=== PATIENT | female | born 1980 | race Caucasian/White ===

== ENCOUNTER 2016-07-31 10:20 | Emergency (ER) | payer OTHER ==
[~2016-07-31] VITALS: Ht 157.5 cm; Wt 73.0 kg
[~2016-07-31 10:20] MED LIST: ALBUAER2 INH; ONDA4TAB7 SL
[2016-07-31 10:26] VITALS: TEMP 36.8; Ht 157.5 cm; Wt 73.0 kg
[2016-07-31] MEDS ORDERED: HYDROmorphone INJ 0.5 MG/0.5 ML SYR IV STA (10:34)
[2016-07-31] MEDS ORDERED: ONDANSETRON INJ 2 MG/ML 2 ML VIAL IV STA (10:34)
[2016-07-31] MEDS ORDERED: IBUP-1428 PO (10:50)
[2016-07-31] MEDS ORDERED: OXYC-609 PO (10:50)
[2016-07-31 11:09] LABS: BASO % 0.5 %; BASO ABS # 0.03 K/uL (0-0.2); COMPLETE YES; EOS % 2.8 %; HEMATOCRIT 40.8 % (37-47); IG% 0.3 %; LYMPH % 25.5 %; LYMPH ABS # 1.55 K/uL (1.2-3.4); MEAN CELL VOLUME 91.1 fL (80-100); MEAN CORPUSCULAR HEMOGLOBIN 31.5 pg (25-34); MEAN CORPUSCULAR HGB CONC 34.6 g/dl (32-36); MEAN PLATELET VOLUME 9.7 fL (7.4-10.4); MONO % 10.5 %; NEUT % 60.4 %; PLATELET COUNT 264 K/uL (130-400); RED BLOOD COUNT 4.48 M/uL (4.2-5.4); WHITE BLOOD COUNT 6.09 K/uL (4.8-10.8)
[2016-07-31 11:25] LABS: ALT/SGPT 27 U/L (12-78); AST/SGOT 13 U/L (15-37); BLOOD UREA NITROGEN 6 mg/dl (7-18); BUN/CREATININE RATIO 5.8 (10-20); CALCIUM 8.9 mg/dl (8.5-10.1); CARBON DIOXIDE 29 mmol/L (21-32); CHLORIDE 109 mmol/L (98-107); GLUCOSE 84 mg/dl (70-99); POTASSIUM 3.7 mmol/L (3.5-5.1); SODIUM 144 mmol/L (136-145)
[2016-07-31 11:28] LABS: ALKALINE PHOSPHATASE 62 U/L (45-117)
[2016-07-31 11:47] LABS: URINE APPEARANCE CLEAR (CLEAR); URINE BILIRUBIN NEG (NEG); URINE COLOR YELLOW; URINE EPITHELIAL CELL AUTO >30 /lpf (0-5); URINE NITRITE NEG (NEG); URINE PH 6.5 (4.5-7.5); UROBILINOGEN NEG (NEG); ZZUR CULT IF INDIC CLEAN CATCH YES
[2016-07-31 12:05] LABS: MANUAL MICROSCOPIC REQUIRED? NO; REVIEW REQ? NO
[2016-07-31] MEDS ORDERED: CEPHALEXIN MONOHYDRATE 250 MG CAP PO ONE (14:00)
[2016-07-31] MEDS ORDERED: CEPH500C PO (14:01)
[2016-07-31 14:16] VITALS: BP 135/88; PULSE 66; O2SAT 99
--- NOTE | 2016-07-31 14:59 | Progress Note ---
Progress Note Date of Service Jul 31, 2016. Progress Note Dr. Flores asked me to evaluate patient given she had surgery by Dr. Winkler on Wednesday07/28/2016. Patient came into emergency department complaining of umbilical pain , redness, and burning sensation. Pain began last evening, with some redness, no drainage, fever, chills, nausea, vomiting, or generalized abdominal pain. She states her daughter bumped into her yesterday on accident and now has some bruising in the area. Last bowel movement was yesterday and tolerating regular diet. General: A & O x 3 , NAD HEENT: Normocephalic/atraumatic Abdomen: Soft, Tender at umbilicus with erythema and ecchymosis, no incisional drainage, incisions clean/dry/intact with steri strips present. Normal bowel sounds. No rigidity, guarding, rebound, or peritonitis. No induration or fluctuance at the umbilicus to suggest abscess. No edema. No palpable mass or fluid collection. Skin: warm and dry, warm to touch at umbilicus Labs: WBC normal at 6.09 , H&H normal at 14.1/40.8. LFTS within normal limits. Total bilirubin 0.3 and direct bilirubin 0.1 Patient stable with no leukocytosis, LFTS within normal limits and examination showing ecchymosis, tenderness and slight erythema at umbilicus. Recommend course of Keflex 500 mg BID and patient will follow-up with me in office on . Advised patient to report back to emergency room with fever, chills, nausea, vomiting, increasing abdominal pain, redness, or purulent drainage from incision , her and understood. Umu Hernandez PA-C General surgery 07/31/16 2:57 pm
--- NOTE | 2016-07-31 17:36 | EMERGENCY ROOM VISIT NOTE ---
History Report prepared by Pj: Delisa Rehman Under the Supervision of: Dr. Justice Flores D.O. First contact with patient: 10:29 Chief Complaint: REFERRED BY DOCTOR Stated Complaint: LILIYA ON JOSE History of Present Illness The patient is a 35 year old female who presents to the Emergency Room with complaints of persistent abdominal pain starting last night. She had gallbladder surgery 3 days ago. The incision site has been irritated and inflamed. She describes the sensation as her abdomen being on fire around her umbilicus. Her last bowel movement was yesterday and was normal. She denies any dysuria. She is still passing gas. There is no discharge or draining from the site. No urinary urgency or frequency. No vaginal discomfort. Source of History: patient Onset: last night Position: abdomen Quality: burning Timing: other (persistent) Note: Pt denies dysuria, change in bowel movement, discharge or draining for site. Review of Systems See HPI for pertinent positives & negatives. A total of 10 systems reviewed and were otherwise negative. Past Medical & Surgical Medical Problems: (1) Asthma (2) Diabetes Family History Diabetes mellitus FH: cancer FH: gallbladder disease FH: heart disease Hypertension Social History Smoking Status: Never Smoker Alcohol Use: none Marital Status: single Occupation Status: unemployed Current/Historical Medications Scheduled Cephalexin Monohydrate (Keflex), 500 MG PO QID Scheduled PRN Ibuprofen (Motrin), 800 MG PO Q8H PRN for Pain Oxycodone HCl (Oxycodone HCl), 5 MG PO Q6 PRN for Pain Allergies Coded Allergies: BEE STING (Verified Allergy, Mild, 07/31/16) Codeine (Verified Allergy, Unknown, THROAT SWELLS, 07/05/15) Morphine (Verified Adverse Reaction, Severe, cardiac arrest, 07/05/15) Aspirin (Verified Adverse Reaction, Mild, NOSE BLEED, 07/31/16) Physical Exam Vital Signs Date Time Temp Pulse Resp B/P Pulse Ox O2 Delivery O2 Flow Rate FiO2 07/31/16 14:16 66 18 135/88 99 07/31/16 10:26 36.8 90 16 142/88 99 Room Air Physical Exam GENERAL: ambulating without difficulty, alert, well appearing, well nourished, no distress, non-toxic EYE EXAM: normal conjunctiva OROPHARYNX: no exudate, no erythema, lips, buccal mucosa, and tongue normal and mucous membranes are moist NECK: supple, no nuchal rigidity, no adenopathy, non-tender LUNGS: Clear to auscultation. Normal chest wall mechanics HEART: no murmurs, S1 normal and S2 normal ABDOMEN: abdomen soft, non-tender, normo-active bowel sounds, no masses, no rebound or guarding. Multiple incision sites present, all clean, dry and intact except umbilical. Mild erythema and tenderness to palpation. No fluctuance. SKIN: no rashes and no bruising UPPER EXTREMITIES: upper extremities are grossly normal. LOWER EXTREMITIES: No pitting edema. NEURO EXAM: Normal sensorium, cranial nerves II-XII grossly intact, normal speech, no gross weakness of arms, no gross weakness of legs. Medical Decision & Procedures Laboratory Results 07/31/16 10:55 Red Blood Count 4.48, Mean Corpuscular Volume 91.1, Mean Corpuscular Hemoglobin 31.5, Mean Corpuscular Hemoglobin Concent 34.6, Mean Platelet Volume 9.7, Neutrophils (%) (Auto) 60.4, Lymphocytes (%) (Auto) 25.5, Monocytes (%) (Auto) 10.5, Eosinophils (%) (Auto) 2.8, Basophils (%) (Auto) 0.5, Neutrophils # (Auto ) 3.68, Lymphocytes # (Auto) 1.55, Monocytes # (Auto) 0.64, Eosinophils # (Auto ) 0.17, Basophils # (Auto) 0.03 07/31/16 10:55 Test 07/31/16 10:55 07/31/16 11:30 White Blood Count 6.09 K/uL (4.8-10.8) Red Blood Count 4.48 M/uL (4.2-5.4) Hemoglobin 14.1 g/dL (12.0-16.0) Hematocrit 40.8 % (37-47) Mean Corpuscular Volume 91.1 fL (80-100) Mean Corpuscular Hemoglobin 31.5 pg (25-34) Mean Corpuscular Hemoglobin Concent 34.6 g/dl (32-36) Platelet Count 264 K/uL (130-400) Mean Platelet Volume 9.7 fL (7.4-10.4) Neutrophils (%) (Auto) 60.4 % Lymphocytes (%) (Auto) 25.5 % Monocytes (%) (Auto) 10.5 % Eosinophils (%) (Auto) 2.8 % Basophils (%) (Auto) 0.5 % Neutrophils # (Auto) 3.68 K/uL (1.4-6.5) Lymphocytes # (Auto) 1.55 K/uL (1.2-3.4) Monocytes # (Auto) 0.64 K/uL (0.11-0.59) Eosinophils # (Auto) 0.17 K/uL (0-0.5) Basophils # (Auto) 0.03 K/uL (0-0.2) RDW Standard Deviation 41.7 fL (36.4-46.3) RDW Coefficient of Variation 12.4 % (11.5-14.5) Immature Granulocyte % (Auto) 0.3 % Immature Granulocyte # (Auto) 0.02 K/uL (0.00-0.02) Anion Gap 6.0 mmol/L (3-11) Est Creatinine Clear Calc Drug Dose 74.9 ml/min Estimated GFR () 85.7 Estimated GFR (Non- 74.0 BUN/Creatinine Ratio 5.8 (10-20) Calcium Level 8.9 mg/dl (8.5-10.1) Total Bilirubin 0.3 mg/dl (0.2-1) Direct Bilirubin < 0.1 mg/dl (0-0.2) Aspartate Amino Transf (AST/SGOT) 13 U/L (15-37) Alanine Aminotransferase (ALT/SGPT) 27 U/L (12-78) Alkaline Phosphatase 62 U/L (45-117) Total Protein 7.3 gm/dl (6.4-8.2) Albumin 3.9 gm/dl (3.4-5.0) Lipase 170 U/L (73-393) Urine Color YELLOW Urine Appearance CLEAR (CLEAR) Urine pH 6.5 (4.5-7.5) Urine Specific [place] 1.010 (1.000-1.030) Urine Protein NEG (NEG) Urine Glucose (UA) NEG (NEG) Urine Ketones NEG (NEG) Urine Occult Blood NEG (NEG) Urine Nitrite NEG (NEG) Urine Bilirubin NEG (NEG) Urine Urobilinogen NEG (NEG) Urine Leukocyte Esterase NEG (NEG) Urine WBC (Auto) 1-5 /hpf (0-5) Urine RBC (Auto) 0-4 /hpf (0-4) Urine Hyaline Casts (Auto) 5-10 /lpf (0-5) Urine Epithelial Cells (Auto) >30 /lpf (0-5) Urine Bacteria (Auto) 1+ (NEG) Urine Test NEG (NEG) Laboratory results per my review. Medications Administered Medications (Trade) Dose Ordered Sig/Henry Route Start Time Stop Time Status Last Admin Dose Admin Hydromorphone HCl (Dilaudid Inj) 0.5 mg NOW STAT IV 07/31/16 10:34 07/31/16 10:35 DC 07/31/16 11:03 0.5 MG Ondansetron HCl (Zofran Inj) 4 mg NOW STAT IV 07/31/16 10:34 07/31/16 10:35 DC 07/31/16 11:03 4 MG Cephalexin Monohydrate (Keflex Cap) 500 mg NOW ONCE PO 07/31/16 14:00 07/31/16 14:01 DC 07/31/16 14:05 500 MG ED Course ED COURSE: Vital signs were reviewed and showed normal vitals. The patients medical record was reviewed The above diagnostic studies were performed and reviewed. ED treatments and interventions as stated above. 1031: The patient was evaluated in room B9. A complete history and physical examination was performed. 1034: Zofran Inj 4 mg IV, Dilaudid Inj 0.5 mg IV. 1131: I reevaluated the patient. She is resting comfortably. 1239: I discussed the patient's case with Dr. Winkler, [facility]. He requests I call someone from the service. 1323: I discussed the patient's case with Dr. Benson, [facility]. He requests that I call one of his PAs. 1329: I discussed the patient's case with Umu Hernandez PA-C [facility]. She will come evaluate the patient. 1334: I reevaluated the patient. She is resting comfortably. I informed her that General Surgery will be coming down to examine her. 1354: General surgery has evaluated the patient. They recommends Keflex and follow up in the office next week. 1358: Upon reevaluation, the patient is resting comfortably.I discussed my findings with the patient and she understands and agrees with the treatment plan. Based on the patients age, coexisting illnesses, exam and lab findings the decision to treat as an outpatient was made. The patient remained stable while under my care. The patient appeared well at the time of discharge. Medical Decision Differential diagnosis includes etiologies such as cellulitis, abscess, MRSA infection, DVT, necrotizing fasciitis, dermatitis, drug eruption, as well as others were entertained. Patient is a 35-year-old female status post laparoscopic cholecystectomy performed [facility] at [facility]. CBC along with BMP, LFTs, bilirubin and lipase was unremarkable. UA was contaminated. Urine was negative. On exam she does have mild erythema around her umbilicus. I discussed her case and patient was evaluated by general surgery at bedside. They recommended Keflex and following up on . Patient was given a dose of Keflex here, and instructed to follow-up with general surgery. Discussed with Pt concerning signs and symptoms to watch out for. Pt was instructed to follow up with their PCP and discussed with the patient their option to return to the ED at anytime for persistent or worsening symptoms. The appropriate anticipatory guidance and out-patient management, including indications for return to the emergency department, were explained at length to the patient and understood. Consults Time Called: 1222 Consulting Physician: Dr. Winkler, [facility] Returned Call: 1239 I discussed the patient's case with him. He requests I call someone from the service. Additional Consults: Time Called: 1245 Consulted Physician: Dr. Benson, [facility] Returned Call: 1323 Additional Comments: I discussed the patient's case with him. He requests that I call one of his PAs. Time Called: 1325 Consulted Physician: Umu Hernandez PA-C [facility] Returned Call: 1327 Additional Comments: I discussed the patient's case with her. She will come evaluate the patient. Impression Primary Impression: Postoperative wound cellulitis Scribe Attestation The scribe's documentation has been prepared under my direction and personally reviewed by me in its entirety. I confirm that the note above accurately reflects all work, treatment, procedures, and medical decision making performed by me. Departure Information Dispostion Home / Self-Care Prescriptions Cephalexin Monohydrate (Keflex) 500 Mg Cap 500 MG PO QID, #28 CAP Prov: Justice Flores, DO 07/31/16 Referrals Maryan Ramey D.O. (PCP) Forms HOME CARE DOCUMENTATION FORM, IMPORTANT VISIT INFORMATION, WORK / SCHOOL INSTRUCTIONS Patient Instructions Cellulitis - [facility] [place] Additional Instructions Please follow up with surgery on . Any worsening of your symptoms, please return to the ED immediately. This includes fevers greater than 100.4, worsening redness, pain your abdomen, or any other concerning signs or symptoms from your standpoint. Problem Qualifiers Primary Impression: Postoperative wound cellulitis Encounter type: initial encounter Qualified Codes: T81.4XXA - Infection following a procedure, initial encounter
== END 2016-07-31 14:18 | disposition home or self-care (01) ==
LOC: C.EDB 10:23
DX: T81.4XXA Infection following a procedure, initial encounter (principal); X58.XXXA Exposure to other specified factors, initial encounter; L03.311 Cellulitis of abdominal wall; E11.9 Type 2 diabetes mellitus without complications; J45.909 Unspecified asthma, uncomplicated; Z88.5 Allergy status to narcotic agent; Z88.6 Allergy status to analgesic agent; Z91.030 Bee allergy status; Z83.3 Family history of diabetes mellitus; Z80.9 Family history of malignant neoplasm, unspecified; Z83.79 Family history of other diseases of the digestive system; Z82.49 Family history of ischemic heart disease and other diseases of the circulatory system